=== PATIENT | female | born 1940 | race Caucasian/White ===

== ENCOUNTER 2020-04-12 14:24 | Outpatient (CLI) | payer MEDICARE ==
--- NOTE | 2020-04-12 15:22 | BD ---
Exam: DEXA Bone Density 04/12/20 HISTORY: Osteoporosis screening. COMPARISON: None. Lumbar Spine: BMD (g/cm2) T-SCORE Z-SCORE L1 0.787 -1.8 0.4 L2 0.939 -0.8 1.7 L3 1.012 -0.7 2.0 L4 1.093 0.3 3.0 L1-L4 0.967 -0.7 1.8 Left Femoral Neck: 0.691 -1.4 0.8 Total Femur: 0.853 -0.7 1.2 WHO classification: Osteopenia. Ten year fracture risk: Major osteoporotic fracture: 11%. Hip fracture: 2.5%. Impression: Osteopenia with fracture risk as above. POS: [facility]
--- NOTE | 2020-04-12 15:30 | MMO ---
Bilateral MAMMO Bilat Screen [facility]. CLINICAL HISTORY: Patient is 79 years old and is seen for screening. The patient has no family history of breast cancer. The patient has no personal history of cancer. VIEWS: The views performed were: bilateral craniocaudal with tomosynthesis and bilateral mediolateral oblique with tomosynthesis. FILMS COMPARED: The present examination has been compared to prior imaging studies performed at [facility] on 12/05/2016, 12/08/2017 and 12/28/2018. This study has been interpreted with the assistance of computer-aided detection. MAMMOGRAM FINDINGS: There are scattered fibroglandular densities. There are stable benign appearing calcifications seen in both breasts. There are also vascular calcifications. Nodularity is stable. There are no suspicious masses, suspicious calcifications, or new areas of architectural distortion. IMPRESSION: THERE IS NO MAMMOGRAPHIC EVIDENCE OF MALIGNANCY. A ROUTINE FOLLOW-UP MAMMOGRAM IN 1 YEAR IS RECOMMENDED. THE RESULTS OF THIS EXAM WERE SENT TO THE PATIENT. ACR BI-RADS Category 2 - Benign finding MAMMOGRAPHY NOTE: 1. A negative mammogram report should not delay a biopsy if a dominant of clinically suspicious mass is present. 2. Approximately 10% to 15% of breast cancers are not detected by mammography. 3. Adenosis and dense breasts may obscure an underlying neoplasm. Reported by: SHERYL MCNEAL MD Electonically Signed: [id number]
== END 2020-04-12 14:25 | disposition home or self-care (01) ==
LOC: BICMAMMO 14:24
DX: Z12.31 Encounter for screening mammogram for malignant neoplasm of breast (principal); N95.8 Other specified menopausal and perimenopausal disorders; M85.89 Other specified disorders of bone density and structure, multiple sites
CPT/HCPCS: 77063; 77067; 77080

== ENCOUNTER 2021-04-27 10:01 | Outpatient (CLI) | payer MEDICARE | END 2021-04-27 10:02 | disposition home or self-care (01) | LOC: BICMAMMO 10:01 | PROVIDERS: ATTEND Obstetrics & Gynecology Female Pelvic Medicine and Reconstructive Surgery | DX: Z12.31 Encounter for screening mammogram for malignant neoplasm of breast (principal) | CPT/HCPCS: 77063; 77067 ==

== ENCOUNTER 2022-06-19 12:41 | Outpatient (CLI) | payer MEDICARE | END 2022-06-19 12:42 | disposition home or self-care (01) | LOC: BICMAMMO 12:41 | PROVIDERS: ATTEND Obstetrics & Gynecology Female Pelvic Medicine and Reconstructive Surgery | DX: Z12.31 Encounter for screening mammogram for malignant neoplasm of breast (principal) | CPT/HCPCS: 77063; 77067 ==

== ENCOUNTER 2023-06-23 11:47 | Outpatient (CLI) | payer MEDICARE | END 2023-06-23 11:48 | disposition home or self-care (01) | LOC: BICMAMMO 11:47 | PROVIDERS: ATTEND Obstetrics & Gynecology | DX: Z12.31 Encounter for screening mammogram for malignant neoplasm of breast (principal) | CPT/HCPCS: 77063; 77067 ==